=== PATIENT | female | born 1990 | race African-American/Black ===

== ENCOUNTER 2019-05-03 10:37 | Emergency (ER) | payer MEDICAID ==
[~2019-05-03] VITALS: Ht 172.7 cm; Wt 69.0 kg
[2019-05-03 10:39] VITALS: BP 126/78
== END 2019-05-03 11:47 | disposition left against medical advice (07) ==
LOC: ER 10:37
DX: Z53.21 Procedure and treatment not carried out due to patient leaving prior to being seen by health care provider (principal)